=== PATIENT | female | born 1980 | race Caucasian/White ===

== ENCOUNTER → 2016-12-14 | Outpatient (CLI) | payer OTHER ==
[2016-12-14 11:25] LABS: THYROID STIMULATING HORMONE 2.88 uIu/ml (0.300-4.500)
== END | disposition home or self-care (01) ==
LOC: C.LAB1850 09:46
PROVIDERS: ATTEND Internal Medicine Endocrinology, Diabetes & Metabolism
DX: E27.1 Primary adrenocortical insufficiency (principal); E03.9 Hypothyroidism, unspecified; E06.3 Autoimmune thyroiditis; E27.40 Unspecified adrenocortical insufficiency

== ENCOUNTER → 2017-09-27 | Outpatient (CLI) | payer OTHER | END | disposition home or self-care (01) | LOC: C.LABPBG 12:34 | PROVIDERS: ATTEND Internal Medicine Endocrinology, Diabetes & Metabolism | DX: E27.1 Primary adrenocortical insufficiency (principal); E03.9 Hypothyroidism, unspecified; E06.3 Autoimmune thyroiditis; E27.40 Unspecified adrenocortical insufficiency; Z86.39 Personal history of other endocrine, nutritional and metabolic disease; E04.9 Nontoxic goiter, unspecified ==

== ENCOUNTER → 2018-01-10 | Outpatient (CLI) | payer OTHER | END | disposition home or self-care (01) | LOC: C.LABPBG 12:23 | PROVIDERS: ATTEND Internal Medicine Endocrinology, Diabetes & Metabolism | DX: E03.9 Hypothyroidism, unspecified (principal); E27.1 Primary adrenocortical insufficiency ==